=== PATIENT | male | born 1945 | race Caucasian/White ===

== ENCOUNTER 2017-08-21 15:18 | Inpatient (IN) ==
[2017-08-21] MEDS ORDERED: 0.9 % Sodium Chloride 1,000 ML IVC ONE (15:29)
[2017-08-21] MEDS ORDERED: *HR* FentaNYL (PF) 100 MCG/2 ML VIAL IVP ONE (15:29)
--- NOTE | 2017-08-21 15:36 | Emergency Department Note ---
Disposition Clinical Impression: TOMEKA (acute kidney injury), AAA (abdominal aortic aneurysm) without rupture DVT, bilateral lower limbs Qualifiers: Affected thrombotic vein of extremity: femoral Chronicity: acute Qualified Code (s): I82.413 - Acute embolism and thrombosis of femoral vein, bilateral Disposition: Admitted As Inpatient Condition: Fair Referrals: NONE,PCP [Primary Care Provider] - Forms: ED Satisfaction Letter, Work/School Release Time of Disposition: 19:20 Extremity Problem HPI - General Chief complaint: ED General Medical Stated complaint: sent by for DVT Time Seen by Provider: 08/21/17 15:27 Source: patient, EMS Limitations: no limitations Nursing Notes Reviewed: Yes Vital Signs Reviewed: Yes - History of Present Illness HPI Narrative: Patient is a 72-year-old male in by EMS from the [place] for bilateral lower extremity DVTs. Patient sent for outpatient venous Doppler but today. Patient states his leg pain left 8/10 intensity. Patient denies any pain elsewhere. He denies shortness of breath or chest pain. Patient has a history of CABG 3 years ago. Patient denies prior history of cancer Pain Scale: 1 - Related Data Home Medications Medication Instructions Recorded Confirmed Albuterol Sulfate [Ventolin Hfa] 1 puff IH BID 08/21/17 08/21/17 Aspirin [Lo-Dose Aspirin EC] 81 mg PO DAILY 08/21/17 08/21/17 Atorvastatin Calcium [Lipitor] 20 mg PO DAILY 08/21/17 08/21/17 Carvedilol 3.125 mg PO BID 08/21/17 08/21/17 Cholecalciferol (D-3) [Vitamin D] 5,000 unit PO DAILY 08/21/17 08/21/17 Cyanocobalamin (Vitamin B-12) 500 mcg PO MOWEFR 08/21/17 08/21/17 [Vitamin B12] Docusate Sodium [Dok] 100 mg PO Q12H 08/21/17 08/21/17 Fenofibrate [Tricor] 54 mg PO DAILY 08/21/17 08/21/17 Folic Acid 1 mg PO DAILY 08/21/17 08/21/17 Furosemide [Lasix] 40 mg PO DAILY 08/21/17 08/21/17 Gabapentin [Neurontin] 300 mg PO HS 08/21/17 08/21/17 GlipiZIDE XL (24 HR) [Glucotrol XL] 2.5 mg PO DAILY 08/21/17 08/21/17 Guaifenesin [Mucus Relief] 400 mg PO BID 08/21/17 08/21/17 HYDROcodone/Acet 5/325 mg [[place] 1 tab PO Q6H PRN 08/21/17 08/21/17 5-325 mg] Insulin Human Regular [HumuLIN R] 2 - 10 unit SQ DAILY 08/21/17 08/21/17 Ipratropium/Albuterol Neb [Duoneb] 3 ml IH Q4HR PRN 08/21/17 08/21/17 Ipratropium/Albuterol Neb [Duoneb] 3 ml IH Q6HR PRN 08/21/17 08/21/17 LORazepam [Ativan] 0.5 mg PO TID 08/21/17 08/21/17 Linagliptin [Tradjenta] 5 mg PO DAILY 08/21/17 08/21/17 Mirtazapine [Remeron] 30 mg PO HS 08/21/17 08/21/17 Morphine Sulfate [Morphine Oral 5 mg PO Q4H PRN 08/21/17 08/21/17 Solution] Omeprazole [PriLOSEC] 20 mg PO DAILY 08/21/17 08/21/17 Promethazine [Phenergan] 25 mg PO Q6HR PRN 08/21/17 08/21/17 Ranitidine HCl [Acid [employer]] 75 mg PO BID 08/21/17 08/21/17 Ranolazine [Ranexa] 500 mg PO BID 08/21/17 08/21/17 Sennosides [Senna] 8.6 mg PO DAILY 08/21/17 08/21/17 Sertraline [Zoloft] 100 mg PO DAILY 08/21/17 08/21/17 Spironolactone [Aldactone] 12.5 mg PO MOTH 08/21/17 08/21/17 Topiramate [Topamax] 25 mg PO QAM 08/21/17 08/21/17 Topiramate [Topamax] 50 mg PO HS 08/21/17 08/21/17 Allergies Allergy/AdvReac Type Severity Reaction Status Date / Time No Known Allergies Allergy Verified 08/21/17 15:24 All systems ED: reviewed and negative except as stated. Review of Systems: As Per HPI Constitutional: Denies: fever, chills ENT ED: Denies: congestion Cardiovascular: Denies: chest pain Respiratory: Denies: cough, dyspnea, wheezes Gastrointestinal: Denies: abdominal pain, nausea, vomiting Past Medical History - Past Medical History Source: patient, old records reviewed, nursing notes reviewed Medical history: Reports: CHF, COPD, diabetes Psychiatric history: Reports: no psych history - Social History Smoking Status: Former smoker Smokeless Tobacco Status: No Physical Exam Vital Signs Temperature 97.6 F 08/21/17 15:24 Pulse Rate 90 08/21/17 15:24 Respiratory Rate 18 08/21/17 15:24 Blood Pressure 127/75 08/21/17 15:24 O2 Sat by Pulse Oximetry 97 08/21/17 15:24 Temperature 97.6 F 08/21/17 15:24 Pulse Rate 90 08/21/17 15:24 Respiratory Rate 18 08/21/17 15:24 Blood Pressure 127/75 08/21/17 15:24 O2 Sat by Pulse Oximetry 97 08/21/17 15:24 Oxygen Delivery Oxygen Delivery Room Air CONSTITUTIONAL: Well-appearing; well-nourished; A&O X 3, in no apparent distress HEAD: Normocephalic; atraumatic EYES: PERRL, no scleral icterus NOSE: The nose is normal in appearance without rhinorrhea NECK: No JVD or distended neck veins RESP: Normal chest excursion with respiration; breath sounds clear and equal bilaterally; no wheezes, rhonchi, or rales CARD: Regular rhythm, without murmurs, rub or gallop ABD: Non-distended; non-tender, soft, without rigidity, rebound or guarding,no pulsatile mass CHEST: No pain with palpation SKIN: Normal for age and race; warm and dry without diaphoresis ; no apparent lesions EXTREMITIES: Pulses are 2 plus and equal times 4 extremities, bilateral lower extremity edema with appearance of severe venous insufficiency and scabbed over wounds with clotted blood. Both extremities scattered areas of erythema - General Limitations: no limitations General appearance: alert, in no apparent distress Course - Reevaluation(s) Reevaluation #1: Patient is back from CT. I inspected the wound in the back of the left lower extremity and lateral foot on the left as well. No active bleeding. No active purulence. Ordered x-ray further but and lower extremity to assess for any abnormality concerning for gas production in subcutaneous tissues. And consulted wound care Time: 17:59 - Consultations Consultation #1: Dr. Braga the hospitalist has accepted the Pt for admission Time: 17:37 Consultation #2: Dr. Huggins of wound care was consult it. He states he will see the patient tomorrow and take a look at his leg injuries Time: 18:00 Vital Signs Temperature 97.6 F 08/21/17 15:24 Pulse Rate 90 08/21/17 15:24 Respiratory Rate 18 08/21/17 15:24 Blood Pressure 127/75 08/21/17 15:24 O2 Sat by Pulse Oximetry 97 08/21/17 15:24 Temperature 97.6 F 08/21/17 15:24 Pulse Rate 90 08/21/17 15:24 Respiratory Rate 18 08/21/17 15:24 Blood Pressure 127/75 08/21/17 15:24 O2 Sat by Pulse Oximetry 97 08/21/17 15:24 Oxygen Delivery Oxygen Delivery Room Air Extremity Problem, [place] - MDM Narrative Medical decision making narrative: Patient was transferred to [place] emergency department after identification of bilateral lower extremity DVTs. Patient will have a CTA of the chest and CT abdomen and pelvis with IV contrast to assess for further spread of DVTs standard dose heparin orders placed. Patient's labs show an acute kidney injury with creatinine at 2.29 and a GFR of 29. Patient is unable to have contrasted studies. CTA chest and CT abdomen with IV contrast canceled and noncontrast studies have been ordered. VQ scan of the chest ordered. Imaging results: Per radiology Pulmonary Perfusion Imaging 08/21/17 17:21 IMPRESSION: Low probability for pulmonary embolus. D/ / Ray Tinajero MD / Ray Tinajero MD Interpreting Provider: Ray Tinajero MD Abdomen/Pelvis CT 08/21/17 17:31 IMPRESSION: 1. No CT evidence for acute intra-abdominal process. 2. Abdominal aortic aneurysm measuring up to 3.5 cm. Please see follow-up guidelines below. 3. Essentially nondiagnostic evaluation of the vasculature for venous thrombosis given the lack contrast enhancement. Lower extremity venous ultrasound is suggested for further evaluation, if there is persistent clinical concern. Patient is currently doing well, Patient has been started on standard dose heparin, given IV hydration, pain control with fentanyl. Patient has an incidental finding of abdominal aortic aneurysm measuring 3.5 cm. Patient may also need further evaluation concerning his IVC with his kidney function is better. Patient understands and agrees to treatment and plan for admission. Dr. Braga the hospitalist has accepted the Pt for admission - Lab Data Lab results reviewed: Yes I reviewed the patient's lab results. Lab results narrative: Short CBC 08/21/17 Range/Units 15:58 WBC 10.0 (4.3-11.1) K/mcL Hgb 10.8 L (12.9-16.9) g/dL Hct 34.0 L (37.5-50.1) % Plt Count 248 (140-400) K/mcL Neutrophils # 7.7 (1.6-8.9) K/mcL BMP 08/21/17 Range/Units 15:58 Sodium 137 (136-145) mEq/L Potassium 3.8 (3.5-5.1) mEq/L Chloride 105 (98-107) mEq/L Carbon Dioxide 25 (23-29) mEq/L BUN 28 H (8-23) mg/dL Creatinine 2.29 H (0.70-1.30) mg/dL Glucose 98 (70-105) mg/dL Calcium 9.1 (8.6-10.3) mg/dL Result diagrams: 08/21/17 15:58 08/21/17 15:58 Lab Results 08/21/17 08/21/17 08/21/17 Range/Units 15:58 15:58 15:58 WBC 10.0 (4.3-11.1) K/mcL RBC 3.68 L (4.19-5.50) M/mcL Hgb 10.8 L (12.9-16.9) g/dL Hct 34.0 L (37.5-50.1) % MCV 92.4 (83.0-100.0) fL MCH 29.3 (28.0-33.3) pg MCHC 31.8 (31.6-35.5) g/dL RDW 13.6 (11.5-14.5) % Plt Count 248 (140-400) K/mcL MPV 10.9 (9.4-12.4) fL Immature Gran % 0.8 (0-4) % Seg Neutrophils % 77.1 % Lymphocytes % 11.7 % Monocytes % 7.3 % Eosinophils % 2.8 % Basophils % 0.3 % Neutrophils # 7.7 (1.6-8.9) K/mcL Lymphocytes # 1.2 (0.6-4.6) K/mcL Monocytes # 0.7 (0.0-1.3) K/mcL Eosinophils # 0.3 (0.0-0.6) K/mcL Basophils # 0.0 (0.0-0.2) K/mcL PT 12.1 (9.4-12.1) Seconds INR 1.1 APTT 28.1 (26.0-36.0) Seconds Sodium 137 (136-145) mEq/L Potassium 3.8 (3.5-5.1) mEq/L Chloride 105 (98-107) mEq/L Carbon Dioxide 25 (23-29) mEq/L BUN 28 H (8-23) mg/dL Creatinine 2.29 H (0.70-1.30) mg/dL Est GFR ( Amer) 34 L (> 60) Est GFR (Non-Af Amer) 28 L (> 60) BUN/Creatinine Ratio 12 (6-26) Glucose 98 (70-105) mg/dL Calculated Osmolality 289 (280-300) Calcium 9.1 (8.6-10.3) mg/dL Urine Color (Yellow) Urine Clarity (Clear) Urine pH (5.0-8.0) pH Units Ur Specific [place] (1.010-1.025) Urine Protein (Neg-Trace) mg/dL Urine Glucose (UA) (Normal) mg/dL Urine Ketones (Negative) mg/dL Urine Blood (Negative) Urine Nitrite (Negative) Urine Bilirubin (Negative) Urine Urobilinogen (Normal) mg/dL Ur Leukocyte Esterase (Negative) Urine Microscopic RBC (0-3) per hpf Urine Microscopic WBC (0-3) per hpf Ur Squamous Epith Cells (None-Few) per lpf Urine Bacteria (None-Few) per hpf Hyaline Casts (None-Few) per lpf 08/21/17 Range/Units 19:39 WBC (4.3-11.1) K/mcL RBC (4.19-5.50) M/mcL Hgb (12.9-16.9) g/dL Hct (37.5-50.1) % MCV (83.0-100.0) fL MCH (28.0-33.3) pg MCHC (31.6-35.5) g/dL RDW (11.5-14.5) % Plt Count (140-400) K/mcL MPV (9.4-12.4) fL Immature Gran % (0-4) % Seg Neutrophils % % Lymphocytes % % Monocytes % % Eosinophils % % Basophils % % Neutrophils # (1.6-8.9) K/mcL Lymphocytes # (0.6-4.6) K/mcL Monocytes # (0.0-1.3) K/mcL Eosinophils # (0.0-0.6) K/mcL Basophils # (0.0-0.2) K/mcL PT (9.4-12.1) Seconds INR APTT (26.0-36.0) Seconds Sodium (136-145) mEq/L Potassium (3.5-5.1) mEq/L Chloride (98-107) mEq/L Carbon Dioxide (23-29) mEq/L BUN (8-23) mg/dL Creatinine (0.70-1.30) mg/dL Est GFR ( Amer) (> 60) Est GFR (Non-Af Amer) (> 60) BUN/Creatinine Ratio (6-26) Glucose (70-105) mg/dL Calculated Osmolality (280-300) Calcium (8.6-10.3) mg/dL Urine Color Yellow (Yellow) Urine Clarity Clear (Clear) Urine pH 6.0 (5.0-8.0) pH Units Ur Specific [place] 1.016 (1.010-1.025) Urine Protein Negative (Neg-Trace) mg/dL Urine Glucose (UA) Normal (Normal) mg/dL Urine Ketones Negative (Negative) mg/dL Urine Blood Large H (Negative) Urine Nitrite Negative (Negative) Urine Bilirubin Negative (Negative) Urine Urobilinogen Normal (Normal) mg/dL Ur Leukocyte Esterase Negative (Negative) Urine Microscopic RBC TNTC H (0-3) per hpf Urine Microscopic WBC 0-3 (0-3) per hpf Ur Squamous Epith Cells Few (None-Few) per lpf Urine Bacteria None Seen (None-Few) per hpf Hyaline Casts None Seen (None-Few) per lpf - Radiology Data Radiology results reviewed: Yes I reviewed the patient's radiology results. Pulmonary Perfusion Imaging 08/21/17 17:21 IMPRESSION: Low probability for pulmonary embolus. D/ / Ray Tinajero MD / Ray Tinajero MD Interpreting Provider: Ray Tinajero MD Abdomen/Pelvis CT 08/21/17 17:31 IMPRESSION: 1. No CT evidence for acute intra-abdominal process. 2. Abdominal aortic aneurysm measuring up to 3.5 cm. Please see follow-up guidelines below. 3. Essentially nondiagnostic evaluation of the vasculature for venous thrombosis given the lack contrast enhancement. Lower extremity venous ultrasound is suggested for further evaluation, if there is persistent clinical concern. RECOMMENDATIONS: Managing Abdominal Aortic Aneurysms 2.6-2.9 cm: Every 5 years* 3.0-3.4 cm: Every 3 years. 3.5-3.9 cm: Every 1 year. 4.0-4.4 cm: Every 1 year. Recommend vascular consultation. 4.5-5.4 cm: Every 6 months. Recommend vascular consultation. Greater than or equal to 5.5 cm: Referral to vascular surgeon. *For abdominal aortas with maximum diameter of 2.6-2.9 cm meeting criteria for AAA (>50% of proximal normal segment). Reference: J Vasc Surg. 2008;50(4 Suppl):S2-49 D/ / Calin Douglas / Calin Douglas Interpreting Provider: Calin Douglas Chest CT 08/21/17 17:31 IMPRESSION: No acute disease. Sensitivity limited without IV contrast. Status post CABG. D/ / Ray Tinajero MD / Ray Tinajero MD Interpreting Provider: Ray Tinajero MD - EKG Data EKG attestation: Yes I reviewed and interpreted this EKG. EKG results narrative: EKG taken but seen August 2017 at 1646 hrs. shows a sinus rhythm at a rate of 74 bpm with a first-degree AV block EKG shows mild ST depressions in leads V3 and V4, and lead 1. No acute ST elevations in any leads, no WPW, [place], [place]. No previous EKG for comparison
--- NOTE | 2017-08-21 15:46 | Emergency Department Note ---
Disposition Clinical Impression: TOMEKA (acute kidney injury), DVT, bilateral lower limbs Disposition: Admitted As Inpatient Condition: Fair Referrals: NONE,PCP [Primary Care Provider] - Forms: ED Satisfaction Letter, Work/School Release General Adult HPI - General Chief complaint: ED General Medical Stated complaint: sent by for DVT Time Seen by Provider: 08/21/17 15:27 Source: patient, EMS Limitations: no limitations - History of Present Illness Pain Scale: 1 - Related Data Home Medications Medication Instructions Recorded Confirmed Albuterol Sulfate [Ventolin Hfa] 1 puff IH BID 08/21/17 08/21/17 Aspirin [Lo-Dose Aspirin EC] 81 mg PO DAILY 08/21/17 08/21/17 Atorvastatin Calcium [Lipitor] 20 mg PO DAILY 08/21/17 08/21/17 Carvedilol 3.125 mg PO BID 08/21/17 08/21/17 Cholecalciferol (D-3) [Vitamin D] 5,000 unit PO DAILY 08/21/17 08/21/17 Cyanocobalamin (Vitamin B-12) 500 mcg PO MOWEFR 08/21/17 08/21/17 [Vitamin B12] Docusate Sodium [Dok] 100 mg PO Q12H 08/21/17 08/21/17 Fenofibrate [Tricor] 54 mg PO DAILY 08/21/17 08/21/17 Folic Acid 1 mg PO DAILY 08/21/17 08/21/17 Furosemide [Lasix] 40 mg PO DAILY 08/21/17 08/21/17 Gabapentin [Neurontin] 300 mg PO HS 08/21/17 08/21/17 GlipiZIDE XL (24 HR) [Glucotrol XL] 2.5 mg PO DAILY 08/21/17 08/21/17 Guaifenesin [Mucus Relief] 400 mg PO BID 08/21/17 08/21/17 HYDROcodone/Acet 5/325 mg [[place] 1 tab PO Q6H PRN 08/21/17 08/21/17 5-325 mg] Insulin Human Regular [HumuLIN R] 2 - 10 unit SQ DAILY 08/21/17 08/21/17 Ipratropium/Albuterol Neb [Duoneb] 3 ml IH Q4HR PRN 08/21/17 08/21/17 Ipratropium/Albuterol Neb [Duoneb] 3 ml IH Q6HR PRN 08/21/17 08/21/17 LORazepam [Ativan] 0.5 mg PO TID 08/21/17 08/21/17 Linagliptin [Tradjenta] 5 mg PO DAILY 08/21/17 08/21/17 Mirtazapine [Remeron] 30 mg PO HS 08/21/17 08/21/17 Morphine Sulfate [Morphine Oral 5 mg PO Q4H PRN 08/21/17 08/21/17 Solution] Omeprazole [PriLOSEC] 20 mg PO DAILY 08/21/17 08/21/17 Promethazine [Phenergan] 25 mg PO Q6HR PRN 08/21/17 08/21/17 Ranitidine HCl [Acid [employer]] 75 mg PO BID 08/21/17 08/21/17 Ranolazine [Ranexa] 500 mg PO BID 08/21/17 08/21/17 Sennosides [Senna] 8.6 mg PO DAILY 08/21/17 08/21/17 Sertraline [Zoloft] 100 mg PO DAILY 08/21/17 08/21/17 Spironolactone [Aldactone] 12.5 mg PO MOTH 08/21/17 08/21/17 Topiramate [Topamax] 25 mg PO QAM 08/21/17 08/21/17 Topiramate [Topamax] 50 mg PO HS 08/21/17 08/21/17 Allergies Allergy/AdvReac Type Severity Reaction Status Date / Time No Known Allergies Allergy Verified 08/21/17 15:24 Constitutional: Denies: fever, chills ENT ED: Denies: congestion Cardiovascular: Denies: chest pain Respiratory: Denies: cough, dyspnea, wheezes Gastrointestinal: Denies: abdominal pain, nausea, vomiting Past Medical History - Past Medical History Medical history: Reports: CHF, COPD, diabetes Psychiatric history: Reports: no psych history - Social History Smoking Status: Former smoker Smokeless Tobacco Status: No Physical Exam - General Limitations: no limitations General appearance: alert, in no apparent distress Course Vital Signs Temperature 97.6 F 08/21/17 15:24 Pulse Rate 90 08/21/17 15:24 Respiratory Rate 18 08/21/17 15:24 Blood Pressure 127/75 08/21/17 15:24 O2 Sat by Pulse Oximetry 97 08/21/17 15:24 Temperature 97.6 F 08/21/17 15:24 Pulse Rate 90 08/21/17 15:24 Respiratory Rate 18 08/21/17 15:24 Blood Pressure 127/75 08/21/17 15:24 O2 Sat by Pulse Oximetry 97 08/21/17 15:24 Oxygen Delivery Oxygen Delivery Room Air Medical Decision Making - Lab Data Result diagrams: 08/21/17 15:58 08/21/17 15:58 Lab Results 08/21/17 08/21/17 08/21/17 Range/Units 15:58 15:58 15:58 WBC 10.0 (4.3-11.1) K/mcL RBC 3.68 L (4.19-5.50) M/mcL Hgb 10.8 L (12.9-16.9) g/dL Hct 34.0 L (37.5-50.1) % MCV 92.4 (83.0-100.0) fL MCH 29.3 (28.0-33.3) pg MCHC 31.8 (31.6-35.5) g/dL RDW 13.6 (11.5-14.5) % Plt Count 248 (140-400) K/mcL MPV 10.9 (9.4-12.4) fL Immature Gran % 0.8 (0-4) % Seg Neutrophils % 77.1 % Lymphocytes % 11.7 % Monocytes % 7.3 % Eosinophils % 2.8 % Basophils % 0.3 % Neutrophils # 7.7 (1.6-8.9) K/mcL Lymphocytes # 1.2 (0.6-4.6) K/mcL Monocytes # 0.7 (0.0-1.3) K/mcL Eosinophils # 0.3 (0.0-0.6) K/mcL Basophils # 0.0 (0.0-0.2) K/mcL PT 12.1 (9.4-12.1) Seconds INR 1.1 APTT 28.1 (26.0-36.0) Seconds Sodium 137 (136-145) mEq/L Potassium 3.8 (3.5-5.1) mEq/L Chloride 105 (98-107) mEq/L Carbon Dioxide 25 (23-29) mEq/L BUN 28 H (8-23) mg/dL Creatinine 2.29 H (0.70-1.30) mg/dL Est GFR ( Amer) 34 L (> 60) Est GFR (Non-Af Amer) 28 L (> 60) BUN/Creatinine Ratio 12 (6-26) Glucose 98 (70-105) mg/dL Calculated Osmolality 289 (280-300) Calcium 9.1 (8.6-10.3) mg/dL Critical Care Time Critical Care Time: Yes Total Critical Care Time: 40 Attestation: Critical care performed: Time is exclusive of separately billable procedures. Time includes: direct patient care, patient reassessment, coordination of patient care, interpretation of data (laboratory data, radiology data, and respiratory data), review of patient's medical records, medical consultation and documentation of patient care. Procedures included in critical care time: Procedures excluded from critical care time: Attestation Statement - Attestation Attestation: I examined this patient and my medical decision-making was reviewed with the Resident Physician. I agree with the documented findings, disposition and treatment plan as described except to the extent set forth below. Patient presents to the ED with a chief complaint of DVTs. The patient is unsure why he had outpatient DVT studies ordered. He has bilateral thrombus diffusely in his lower extremities. On examination he has pitting edema. Plan. Labs. CTA chest abdomen pelvis. The patient's CT chest is unremarkable. V/Q and CT abdomen pending. Accepted for admission by Dr. Braga. V/Q low probability for PE.
[2017-08-21] MEDS ORDERED: Isovue-370 500 ML INFUS..BTL IV ONE (15:47)
[2017-08-21] MEDS ORDERED: *HR* Heparin 5,000 UNIT/ML VIAL IVP PRN ×2 (16:00)
[2017-08-21] MEDS ORDERED: *HR* Heparin 5,000 UNIT/ML VIAL IVP ONE (16:00)
[2017-08-21 16:09] LABS: Basophils % 0.3 %; Eosinophils # 0.3 K/mcL (0.0-0.6); Eosinophils % 2.8 %; Hemoglobin 10.8 g/dL (12.9-16.9); Immature Granulocytes % 0.8 % (0-4); Lymphocytes # 1.2 K/mcL (0.6-4.6); Lymphocytes % 11.7 %; Mean Corpuscular HGB Conc 31.8 g/dL (31.6-35.5); Mean Corpuscular Hemoglobin 29.3 pg (28.0-33.3); Mean Corpuscular Volume 92.4 fL (83.0-100.0); Mean Platelet Volume 10.9 fL (9.4-12.4); Monocytes # 0.7 K/mcL (0.0-1.3); Monocytes % 7.3 %; Neutrophils # 7.7 K/mcL (1.6-8.9); Platelet Count 248 K/mcL (140-400); Red Blood Count 3.68 M/mcL (4.19-5.50); Red Cell Distribution Width 13.6 % (11.5-14.5); Segmented Neutrophils % 77.1 %
[2017-08-21 16:15] LABS: INR 1.1; Prothrombin Time 12.1 Seconds (9.4-12.1)
[2017-08-21 16:18] LABS: Activated Partial Thrombo Time 28.1 Seconds (26.0-36.0)
[2017-08-21 16:29] LABS: Calcium 9.1 mg/dL (8.6-10.3); Potassium 3.8 mEq/L (3.5-5.1)
[2017-08-21] MEDS: Heparin 25,000 UNIT/500 ML D5W 25,000 UNIT/500 ML BAG IVC SCH (17:19)
[2017-08-21 19:50] LABS: Bilirubin,Urine Negative (Negative); Blood,Urine Large (Negative); Clarity,Urine Clear (Clear); Color,Urine Yellow (Yellow); Glucose,Urine (UA) Normal (Normal); Ketones,Urine Negative (Negative); Leukocyte Esterase,Urine Negative (Negative); Nitrite,Urine Negative (Negative); Protein,Urine Negative (Neg-Trace); Specific Gravity,Urine 1.016 (1.010-1.025); Urobilinogen,Urine Normal (Normal)
[2017-08-21 19:54] LABS: Bacteria,Urine None Seen per hpf (None-Few); Hyaline Casts,Urine None Seen per lpf (None-Few); RBC,Urine TNTC per hpf (0-3); Squamous Epithelial Cell,Urine Few per lpf (None-Few); WBC,Urine 0-3 per hpf (0-3)
[2017-08-21] MEDS ORDERED: Naloxone 0.4 MG/ML INJ IVP PRN (21:41)
[2017-08-21] MEDS ORDERED: Acetaminophen 325 MG TABLET PO PRN (21:41)
[2017-08-21] MEDS ORDERED: Dextrose Gel 15 GM/37.5 ML TUBE PO PRN ×2 (21:45)
[2017-08-21] MEDS ORDERED: *HR* Dextrose 50 % in Water (Syg) 50 ML SYRINGE IVP PRN (21:45)
[2017-08-21] MEDS ORDERED: *HR* Warfarin 5 MG TABLET PO ONE (21:45)
[2017-08-21] MEDS ORDERED: D5% in Water 1,000 ML IVC PRN (21:45)
[2017-08-21] MEDS ORDERED: Ipratropium/Albuterol Neb 3 ML IH PRN (21:47)
[2017-08-21] MEDS ORDERED: *HR* Morphine Soln 10 MG/5 ML UDC PO PRN (21:47)
[2017-08-21] MEDS ORDERED: Cyanocobalamin (B-12) 1,000 MCG TABLET PO SCH (22:00)
[2017-08-21] MEDS: *HR* HYDROcodone/Acet 5/325 mg TABLET PO PRN (23:46)
--- NOTE | 2017-08-22 03:27 | Internal Med History&Physical ---
Date of Encounter: 08/21/17 Time of Encounter: 20:00 Internal Medicine - H&P: HPI Chief complaint: Bilateral leg pain and swelling Admitted From: Intrahospital Transfer Plans for Post Hospital Care: Home History of present illness: Mr. Dumont is a 72 year old male transferred from [facility] for bilateral leg swelling and pain. Past medical history is significant for diabetes, hypertension, COPD, CAD S/P CABG. Patient said he has bilateral leg pain for a while, sharp, left-sided more than right side. Patient denies fever, shortness of breath, or chest pain. Patient denies a recent travel. Patient had left hip surgery one month ago, and feels more painful on bilateral legs after surgery. In the [facility], [place] doppler shows bilateral DVT. Patient denies history of DVT. Patient was transferred to our hospital for further management. Past Med Surg Social Fam HX - Past Medical History Medical history: CHF, COPD, diabetes Psychiatric history: no psych history - Past Surgical History Surgical History: hip replacement - Social History Smoking Status: Current every day smoker Smokeless Tobacco Status: No Alcohol use: none Drug use: none - Family History Father Hx Family Cardiac Disorders: Yes ([place]) Internal Medicine - H&P: Meds Albuterol Sulfate [Ventolin Hfa] 1 puff IH BID 08/21/17 [History] Aspirin [Lo-Dose Aspirin EC] 81 mg PO DAILY 08/21/17 [History] Atorvastatin Calcium [Lipitor] 20 mg PO DAILY 08/21/17 [History] Carvedilol 3.125 mg PO BID 08/21/17 [History] Cholecalciferol (D-3) [Vitamin D] 5,000 unit PO DAILY 08/21/17 [History] Cyanocobalamin (Vitamin B-12) [Vitamin B12] 500 mcg PO MOWEFR 08/21/17 [History] Docusate Sodium [Dok] 100 mg PO Q12H 08/21/17 [History] Fenofibrate [Tricor] 54 mg PO DAILY 08/21/17 [History] Folic Acid 1 mg PO DAILY 08/21/17 [History] Furosemide [Lasix] 40 mg PO DAILY 08/21/17 [History] Gabapentin [Neurontin] 300 mg PO HS 08/21/17 [History] GlipiZIDE XL (24 HR) [Glucotrol XL] 2.5 mg PO DAILY 08/21/17 [History] Guaifenesin [Mucus Relief] 400 mg PO BID 08/21/17 [History] HYDROcodone/Acet 5/325 mg [[place] 5-325 mg] 1 tab PO Q6H PRN 08/21/17 [History] Insulin Human Regular [HumuLIN R] 2 - 10 unit SQ DAILY 08/21/17 [History] Ipratropium/Albuterol Neb [Duoneb] 3 ml IH Q4HR PRN 08/21/17 [History] Ipratropium/Albuterol Neb [Duoneb] 3 ml IH Q6HR PRN 08/21/17 [History] LORazepam [Ativan] 0.5 mg PO TID 08/21/17 [History] Linagliptin [Tradjenta] 5 mg PO DAILY 08/21/17 [History] Mirtazapine [Remeron] 30 mg PO HS 08/21/17 [History] Morphine Sulfate [Morphine Oral Solution] 5 mg PO Q4H PRN 08/21/17 [History] Omeprazole [PriLOSEC] 20 mg PO DAILY 08/21/17 [History] Promethazine [Phenergan] 25 mg PO Q6HR PRN 08/21/17 [History] Ranitidine HCl [Acid Log Yard Manager] 75 mg PO BID 08/21/17 [History] Ranolazine [Ranexa] 500 mg PO BID 08/21/17 [History] Sennosides [Senna] 8.6 mg PO DAILY 08/21/17 [History] Sertraline [Zoloft] 100 mg PO DAILY 08/21/17 [History] Spironolactone [Aldactone] 12.5 mg PO MOTH 08/21/17 [History] Topiramate [Topamax] 25 mg PO QAM 08/21/17 [History] Topiramate [Topamax] 50 mg PO HS 08/21/17 [History] 3 Allergy/AdvReac Type Severity Reaction Status Date / Time No Known Allergies Allergy Verified 08/21/17 15:24 All Systems PM: A 10-system review of systems was performed and is negative for pertinent findings except as documented above in the HPI. - Constitutional Vitals: Temp Pulse Resp BP Pulse Ox 98.3 F 65 14 119/69 96 08/22/17 02:44 04/14/18 02:44 08/22/17 02:44 08/22/17 02:44 08/22/17 02:44 General appearance: Present: A&O X 3, no acute distress, answers questions appropriately - Head Head exam: Present: atraumatic, normocephalic - Eye Eye exam: Present: PERRL, conjuntiva pink, sclera anicteric Pupils: Present: PERRL - Neck Neck exam general surgery: Present: supple, trachea midline. Absent: lymphadenopathy - Respiratory Respiratory exam: Present: CTAB. Absent: accessory muscle use, rales, rhonchi, wheezes - Cardiovascular Cardiovascular exam: Present: RRR, +S1, +S2. Absent: diastolic murmur, gallop, rubs, systolic murmur - GI/Abdominal GI/Abdominal exam: Present: normal bowel sounds, soft, no peritoneal signs. Absent: distended, tenderness - Extremities Exam Extremities exam: Present: calf tenderness (Bilaterally), pedal edema ( Bilaterally), warm, radial pulses palpable and symmetrical. Absent: cyanotic - Neurological Exam Neurological exam: Present: CN II-XII intact, oriented X3, no focal deficits. Absent: pronater drift, facial droop, speech deficit - Skin Skin exam: Present: dry, intact Internal Med - H&P Results - Labs CBC & Chem 7: 08/21/17 15:58 08/21/17 15:58 - Assessment and plan (1) TOMEKA (acute kidney injury) Current Visit: Yes Status: Acute Assessment and plan: Patient has elevated creatinine. No baseline available to compare. CT abdomen shows no hydronephrosis. Will continue closely follow renal function and avoid nephrotoxic medications (2) DVT, bilateral lower limbs Current Visit: Yes Status: Acute Assessment and plan: Patient was found bilateral DVT. VQ scan has been done which shows low probability of PE. Patient denies shortness of breath or chest pain. - Heparin drip started - We will start Coumadin as well as patient needed long-term anticoagulation - Closely monitor patient Qualifiers: Affected thrombotic vein of extremity: femoral Chronicity: acute Qualified Code(s): I82.413 - Acute embolism and thrombosis of femoral vein, bilateral (3) AAA (abdominal aortic aneurysm) without rupture Current Visit: Yes Status: Acute Assessment and plan: Incidentally found by abdominal CT. 3.5 cm in size. Follow-up as outpatient per protocol. - Time Spent With Patient Total time spent is greater than 50% in coordination of care (as documented) at patient's floor/unit and/or counseling patient: 40 min Greater than 35 minutes
[2017-08-22 07:09] LABS: Basophils % 0.5 %; Eosinophils # 0.4 K/mcL (0.0-0.6); Eosinophils % 5.2 %; Hematocrit 29.6 % (37.5-50.1); Immature Granulocytes % 0.5 % (0-4); Lymphocytes # 1.6 K/mcL (0.6-4.6); Lymphocytes % 22.3 %; Mean Corpuscular HGB Conc 31.1 g/dL (31.6-35.5); Mean Corpuscular Volume 93.4 fL (83.0-100.0); Mean Platelet Volume 11.1 fL (9.4-12.4); Monocytes # 0.7 K/mcL (0.0-1.3); Neutrophils # 4.6 K/mcL (1.6-8.9); Platelet Count 219 K/mcL (140-400); Red Blood Count 3.17 M/mcL (4.19-5.50); Red Cell Distribution Width 13.6 % (11.5-14.5); Segmented Neutrophils % 62.5 %
[2017-08-22 07:11] LABS: Hemoglobin 9.2 g/dL (12.9-16.9)
[2017-08-22 07:30] LABS: Calcium 8.6 mg/dL (8.6-10.3); Potassium 3.9 mEq/L (3.5-5.1)
[2017-08-22 07:57] LABS: INR 1.1; Prothrombin Time 12.2 Seconds (9.4-12.1)
[2017-08-22] MEDS: Heparin 25,000 UNIT/500 ML D5W 25,000 UNIT/500 ML BAG IVC SCH ×2 (08:07→18:02)
[2017-08-22] MEDS: Insulin LISPRO 300 UNITS/3 ML VIAL SQ SCH ×4 (08:38→20:53)
[2017-08-22] MEDS: Ranolazine 500 MG TAB.ER.12H PO SCH ×2 (08:44→20:25)
[2017-08-22] MEDS: Folic Acid 1 MG TABLET PO SCH (08:44)
[2017-08-22] MEDS: Furosemide 40 MG TABLET PO SCH (08:45)
[2017-08-22] MEDS: Famotidine 20 MG TABLET PO SCH (08:45)
[2017-08-22] MEDS: Topiramate 25 MG TABLET PO SCH ×2 (08:45→20:26)
[2017-08-22] MEDS: Fenofibrate 54 MG TABLET PO SCH (08:45)
[2017-08-22] MEDS: *HR* LORazepam 0.5 MG TABLET PO SCH ×3 (08:46→20:25)
[2017-08-22] MEDS: Aspirin Enteric Coated 81 MG Tablet PO SCH (08:46)
[2017-08-22] MEDS: Sennosides 8.6 MG TABLET PO SCH (08:46)
[2017-08-22] MEDS: Cholecalciferol (D-3) 1,000 UNIT TABLET PO SCH (08:47)
[2017-08-22] MEDS: GuaiFENesin Liq 200 MG/10 ML UDC PO SCH ×2 (08:47→20:25)
[2017-08-22] MEDS: Nicotine 14 MG PATCH.TD24 TD SCH (08:47)
--- NOTE | 2017-08-22 13:09 | Podiatry Consult Note ---
Date of Encounter: 08/22/17 Time of Encounter: 12:35 Assessment and Plan (1) Venous (peripheral) insufficiency Current visit: Yes Status: Acute (2) Chronic diabetic ulcer of left foot determined by examination Current visit: Yes Status: Acute Ulcerations do not appear to be infected. left heel NPUAP stage 3 ulceration, sparrow grade 2 left lateral foot ulceration. venous leg ulceration. Ulceration sites appear stable. Recommend upon discharge that he use calcium alginate on the wounds. If in fact he is not following up with anyone would recommend that he sees me in the wound care center. Medical management of the DVTs per primary team. A well in the future if feels these ulcerations require compressive stockings or juxta light compression stockings to reduce edema of the legs and to try to prevent future ulceration. Dressing changes while admitted daily with maxillary. Heel protector boot needed. Thank you for this consult. History of Present Illness HPI: Mr. Dumont is a 72 year old male transferred from [facility] for DVTs in his legs. Past medical history is significant for diabetes, hypertension, COPD, CAD S/P CABG which was obtained from chart. Patient is alert and is a terrible historian and he says he has no idea why he is in this hospital or where he is. He does say that he lives in a facility and there are girls their the care for his wounds. He thinks they have been there for a year or more. He is unable to tell me anything pertinent to his wounds or of value about his wounds or any of his medical conditions. ER consulted podiatry for hospitalist for evaluation of his wounds. Past Med Surg Social Fam HX - Past Medical History Medical history: CHF, COPD, diabetes Psychiatric history: no psych history - Past Surgical History Surgical History: hip replacement - Social History Smoking Status: Current every day smoker Smokeless Tobacco Status: No Alcohol use: none Drug use: none - Family History Father Hx Family Cardiac Disorders: Yes ([place]) Medications and Allergies Albuterol Sulfate [Ventolin Hfa] 1 puff IH BID 08/21/17 [History] Aspirin [Lo-Dose Aspirin EC] 81 mg PO DAILY 08/21/17 [History] Atorvastatin Calcium [Lipitor] 20 mg PO DAILY 08/21/17 [History] Carvedilol 3.125 mg PO BID 08/21/17 [History] Cholecalciferol (D-3) [Vitamin D] 5,000 unit PO DAILY 08/21/17 [History] Cyanocobalamin (Vitamin B-12) [Vitamin B12] 500 mcg PO MOWEFR 08/21/17 [History] Docusate Sodium [Dok] 100 mg PO Q12H 08/21/17 [History] Fenofibrate [Tricor] 54 mg PO DAILY 08/21/17 [History] Folic Acid 1 mg PO DAILY 08/21/17 [History] Furosemide [Lasix] 40 mg PO DAILY 08/21/17 [History] Gabapentin [Neurontin] 300 mg PO HS 08/21/17 [History] GlipiZIDE XL (24 HR) [Glucotrol XL] 2.5 mg PO DAILY 08/21/17 [History] Guaifenesin [Mucus Relief] 400 mg PO BID 08/21/17 [History] HYDROcodone/Acet 5/325 mg [[place] 5-325 mg] 1 tab PO Q6H PRN 08/21/17 [History] Insulin Human Regular [HumuLIN R] 2 - 10 unit SQ DAILY 08/21/17 [History] Ipratropium/Albuterol Neb [Duoneb] 3 ml IH Q4HR PRN 08/21/17 [History] Ipratropium/Albuterol Neb [Duoneb] 3 ml IH Q6HR PRN 08/21/17 [History] LORazepam [Ativan] 0.5 mg PO TID 08/21/17 [History] Linagliptin [Tradjenta] 5 mg PO DAILY 08/21/17 [History] Mirtazapine [Remeron] 30 mg PO HS 08/21/17 [History] Morphine Sulfate [Morphine Oral Solution] 5 mg PO Q4H PRN 08/21/17 [History] Omeprazole [PriLOSEC] 20 mg PO DAILY 08/21/17 [History] Promethazine [Phenergan] 25 mg PO Q6HR PRN 08/21/17 [History] Ranitidine HCl [Acid Channel Installer] 75 mg PO BID 08/21/17 [History] Ranolazine [Ranexa] 500 mg PO BID 08/21/17 [History] Sennosides [Senna] 8.6 mg PO DAILY 08/21/17 [History] Sertraline [Zoloft] 100 mg PO DAILY 08/21/17 [History] Spironolactone [Aldactone] 12.5 mg PO MOTH 08/21/17 [History] Topiramate [Topamax] 25 mg PO QAM 08/21/17 [History] Topiramate [Topamax] 50 mg PO HS 08/21/17 [History] 3 Allergy/AdvReac Type Severity Reaction Status Date / Time No Known Allergies Allergy Verified 08/21/17 15:24 All Systems Reviewed: The remainder of the systems were reviewed and are negative - Constitutional Constitutional: other (unable to obtain a ROS secondary to patient capacity to answer questions and participate ) - Cardiovascular Cardiovascular: leg ulcers, other (unable to obtain a ROS secondary to patient capacity to answer questions and participate ) - Respiratory Respiratory: other (unable to obtain a ROS secondary to patient capacity to answer questions and participate ) - Musculoskeletal Musculoskeletal: other (unable to obtain a ROS secondary to patient capacity to answer questions and participate ) Physical Exam - Constitutional Vitals: Temp Pulse Resp BP Pulse Ox 99.2 F 81 15 143/80 97 08/22/17 10:37 08/22/17 10:37 08/22/17 10:37 08/22/17 10:37 08/22/17 10:37 Exam: Well-developed and nourished male in no acute distress, alert and not oriented Vascular: Bilateral feet and legs are warm to touch. Mild edema bilateral. Dermatology: Venous insufficiency bilateral legs with induration and discoloration. Ulceration left lateral foot proximally 1 cm x 1.5 cm x 0.3 cm ulceration posterior heel 2 cm x 2 cm x 0.3 cm. Venous ulcerations of the left lower extremity on the posterior aspect of the legs. no erythema surrounding ulcerations, no purulence or fluctuance. None of the ulcerations probe to bone. The posterior heel ulceration does not communicate with tendon or deeper structures. There is no necrosis or eschar. Musculoskeletal: Pain appears to be elicited with palpation of the legs. Neurology: Diminished protective sensation appears to be present however patient is unwilling/unable to participate in exam X-ray: Osteopenia. No evidence of cortical disruption or osteomyelitis. Results - Labs Result Diagrams: 08/22/17 06:09 08/22/17 06:09 Labs: Abnormal lab results RBC 3.17 M/mcL (4.19-5.50) L 08/22/17 06:09 Hgb 9.2 g/dL (12.9-16.9) L D 08/22/17 06:09 Hct 29.6 % (37.5-50.1) L 08/22/17 06:09 MCHC 31.1 g/dL (31.6-35.5) L 08/22/17 06:09 PT 12.2 Seconds (9.4-12.1) H 08/22/17 06:09 APTT 76.0 Seconds (26.0-36.0) H 08/22/17 06:09 Chloride 108 mEq/L (98-107) H 08/22/17 06:09 BUN 26 mg/dL (8-23) H 08/22/17 06:09 Creatinine 2.10 mg/dL (0.70-1.30) H 08/22/17 06:09 Est GFR ( Amer) 38 (> 60) L 08/22/17 06:09 Est GFR (Non-Af Amer) 31 (> 60) L 08/22/17 06:09 Glucose 138 mg/dL (70-105) H 08/22/17 06:09 Urine Blood Large (Negative) H 08/21/17 19:39 Urine Microscopic RBC TNTC per hpf (0-3) H 08/21/17 19:39 H & H 08/22/17 Range/Units 06:09 Hgb 9.2 L D (12.9-16.9) g/dL Hct 29.6 L (37.5-50.1) % All other labs normal. Consult Discharge Plan - Plan Referrals: NONE,PCP [Primary Care Provider] -
--- NOTE | 2017-08-22 16:02 | Internal Med Progress Note ---
Date of Encounter: 08/22/17 Time of Encounter: 12:40 - Assessment and plan (1) TOMEKA (acute kidney injury) Current Visit: Yes Status: Acute Assessment and plan: Sr Cr 2.10 GFR 31. No prior labs to compare. CT abdomen/pelvis: the kidneys are symmetric in size and noncontrast appearance. No suspicious renal lesions, no renal, ureteral, or intravesicular calculi. No obstructive uropathy. Avoid nephrotoxins Monitor labs. (2) DVT, bilateral lower limbs Current Visit: Yes Status: Acute Assessment and plan: Pt reports BLE pain for about 2-3 weeks. He states that it was sharp and Left > right. He is non-ambulatory for approximately 5 years. Pt states that he is unable to talk about why he is in a wheelchair all of the time. Patient was found to have bilateral DVT. VQ scan showed low probability for PE. Patient denies shortness of breath or chest pain. Continue heparin drip Warfarin has been started, pharmacy to dose. Closely monitor patient for signs of bleeding. Urine and stool occult blood were ordered this morning, remain uncollected. Qualifiers: Affected thrombotic vein of extremity: femoral Chronicity: acute Qualified Code(s): I82.413 - Acute embolism and thrombosis of femoral vein, bilateral (3) AAA (abdominal aortic aneurysm) without rupture Current Visit: Yes Status: Acute Assessment and plan: Incidental finding on abdominal CT. 3.5 cm. Follow-up outpatient. - Time Spent With Patient Total time spent is greater than 50% in coordination of care (as documented) at patient's floor/unit and/or counseling patient: less than 15 minutes - Subjective Interval history: Pt was seen and assessed at [facility] at 1240. Pt is alert and awake, does not answer questions appropriately. States that he does not know where he is, the month, or the year, but is aware that Giovana is president. He states that he lives in [facility] but does not know where it is. He is unable to state how long how he has been non-ambulatory. He denies n/v/d, abdominal pain, sob, headache, dizziness or chest pain. - Constitutional Vitals: Temp Pulse Resp BP Pulse Ox 99.3 F 68 15 106/67 97 08/22/17 14:44 08/22/17 14:44 08/22/17 14:44 08/22/17 14:44 08/22/17 14:44 General appearance: Present: cooperative, A&O X 1, pleasant, no acute distress, answers questions appropriately - Head Head exam: Present: atraumatic, normal inspection, normocephalic - Eye Eye exam: Present: conjuntiva pink, sclera anicteric - Neck Neck exam general surgery: Present: supple, trachea midline. Absent: lymphadenopathy, tenderness - Respiratory Respiratory exam: Present: CTAB. Absent: accessory muscle use, chest wall tenderness, rales, respiratory distress, rhonchi, wheezes - Cardiovascular Cardiovascular exam: Present: RRR, +S1, +S2. Absent: diastolic murmur, gallop, rubs, systolic murmur - GI/Abdominal GI/Abdominal exam: Present: normal bowel sounds, soft. Absent: distended, hepatomegaly, tenderness - Extremities Exam Extremities exam: Present: normal capillary refill, normal inspection, tenderness, warm, radial pulses palpable and symmetrical. Absent: calf tenderness, cyanotic, pedal edema - Neurological Exam Neurological exam: Present: alert, altered, no focal deficits. Absent: oriented X3, facial droop, speech deficit - Skin Skin exam: Present: dry, intact, normal color, warm. Absent: rash Internal Medicine: Result - Labs CBC & Chem 7: 08/22/17 06:09 08/22/17 06:09 Labs: Short CBC 08/22/17 Range/Units 06:09 WBC 7.3 (4.3-11.1) K/mcL Hgb 9.2 L D (12.9-16.9) g/dL Hct 29.6 L (37.5-50.1) % Plt Count 219 (140-400) K/mcL Neutrophils # 4.6 (1.6-8.9) K/mcL BMP 08/22/17 06:09 Sodium 138 Potassium 3.9 Chloride 108 H Carbon Dioxide 24 BUN 26 H Creatinine 2.10 H Glucose 138 H Calcium 8.6 - ABG Interpretation ABG results: PT/INR, D-dimer PT 12.2 Seconds (9.4-12.1) H 08/22/17 06:09 Consult Discharge Plan - Plan Referrals: NONE,PCP [Primary Care Provider] -
[2017-08-22 16:31] LABS: Hematocrit 29.8 % (37.5-50.1); Hemoglobin 9.7 g/dL (12.9-16.9)
[2017-08-22 17:15] LABS: Bilirubin,Urine Negative (Negative); Blood,Urine Negative (Negative); Clarity,Urine Clear (Clear); Color,Urine Yellow (Yellow); Glucose,Urine (UA) Normal (Normal); Ketones,Urine Negative (Negative); Leukocyte Esterase,Urine Negative (Negative); Nitrite,Urine Negative (Negative); Protein,Urine Negative (Neg-Trace); Specific Gravity,Urine 1.014 (1.010-1.025); Urobilinogen,Urine Normal (Normal)
[2017-08-22] MEDS ORDERED: Warfarin perPT PO PRN ×2 (17:21→18:00)
[2017-08-22] MEDS ORDERED: *HR* Heparin 5,000 UNIT/ML VIAL IVP PRN ×2 (17:27)
[2017-08-22] MEDS ORDERED: *HR* Warfarin 5 MG TABLET PO ONE (18:00)
[2017-08-22] MEDS: Gabapentin 300 MG CAPSULE PO SCH (20:25)
[2017-08-22] MEDS: Mirtazapine 15 MG TABLET PO SCH (20:26)
[2017-08-22] MEDS: *HR* HYDROcodone/Acet 5/325 mg TABLET PO PRN (20:31)
--- NOTE | 2017-08-22 22:41 | Event Note ---
Date of Encounter: 08/22/17 Time of Encounter: 22:01 Alerted by pts. nurse that fecal hemoccult positive. Pt. has hematuria earlier in the day which had resolved. Pt. admitted for bilateral DVTs in LEs and is currently on heparin drip. Went to assess pt. who denies any abdominal pain or unusual bleeding. I instructed pt. to monitor stool for blood as well as urine for hematuria. Instructed pts. nurse to order H/H Q4HR, monitor I&O, and monitor patient for symptoms of increased weakness or bleeding. Pt. and f/u labs to be monitored closely.
[2017-08-23 01:00] LABS: Hemoglobin 9.7 g/dL (12.9-16.9)
[2017-08-23 06:14] LABS: Hematocrit 30.5 % (37.5-50.1); Hemoglobin 9.6 g/dL (12.9-16.9)
[2017-08-23 06:20] LABS: INR 1.2; Prothrombin Time 13.1 Seconds (9.4-12.1)
[2017-08-23] MEDS: Sennosides 8.6 MG TABLET PO SCH (08:27)
[2017-08-23] MEDS: Aspirin Enteric Coated 81 MG Tablet PO SCH (08:27)
[2017-08-23] MEDS: Folic Acid 1 MG TABLET PO SCH (08:27)
[2017-08-23] MEDS: Famotidine 20 MG TABLET PO SCH (08:28)
[2017-08-23] MEDS: Furosemide 40 MG TABLET PO SCH (08:28)
[2017-08-23] MEDS: Nicotine 14 MG PATCH.TD24 TD SCH (08:28)
[2017-08-23] MEDS: Ranolazine 500 MG TAB.ER.12H PO SCH ×2 (08:28→20:37)
[2017-08-23] MEDS: Cholecalciferol (D-3) 1,000 UNIT TABLET PO SCH (08:28)
[2017-08-23] MEDS: *HR* LORazepam 0.5 MG TABLET PO SCH ×3 (08:28→20:37)
[2017-08-23] MEDS: GuaiFENesin Liq 200 MG/10 ML UDC PO SCH ×2 (08:28→20:37)
[2017-08-23] MEDS: Fenofibrate 54 MG TABLET PO SCH (08:28)
[2017-08-23] MEDS: Topiramate 25 MG TABLET PO SCH ×2 (08:28→20:37)
[2017-08-23] MEDS: Insulin LISPRO 300 UNITS/3 ML VIAL SQ SCH ×4 (08:29→20:40)
[2017-08-23 09:26] LABS: Basophils % 0.3 %; Eosinophils # 0.3 K/mcL (0.0-0.6); Eosinophils % 4.6 %; Hematocrit 31.9 % (37.5-50.1); Hemoglobin 10.4 g/dL (12.9-16.9); Immature Granulocytes % 0.4 % (0-4); Lymphocytes # 1.1 K/mcL (0.6-4.6); Lymphocytes % 16.9 %; Mean Corpuscular HGB Conc 32.6 g/dL (31.6-35.5); Mean Corpuscular Hemoglobin 30.3 pg (28.0-33.3); Mean Platelet Volume 11.1 fL (9.4-12.4); Monocytes # 0.5 K/mcL (0.0-1.3); Monocytes % 7.1 %; Neutrophils # 4.8 K/mcL (1.6-8.9); Platelet Count 197 K/mcL (140-400); Red Blood Count 3.43 M/mcL (4.19-5.50); Red Cell Distribution Width 13.8 % (11.5-14.5); Segmented Neutrophils % 70.7 %
[2017-08-23 09:39] LABS: Calcium 8.7 mg/dL (8.6-10.3)
--- NOTE | 2017-08-23 11:00 | Internal Med Progress Note ---
Date of Encounter: 08/23/17 Time of Encounter: 09:25 - Assessment and plan (1) TOMEKA (acute kidney injury) Current Visit: Yes Status: Acute Assessment and plan: Sr Cr 1.97 GFR 34. Improving. Avoid nephrotoxins Monitor labs. Gentle IV fluid hydration with 0.9 normal saline at 60 miles per hour (2) DVT, bilateral lower limbs Current Visit: Yes Status: Acute Assessment and plan: Patient denies leg pain, reports bilateral feet are "sore". Continue heparin drip Warfarin has been started, pharmacy to dose. INR 1.2. Closely monitor patient for signs of bleeding. Repeat urine and repeat stool occult blood negative. Qualifiers: Affected thrombotic vein of extremity: femoral Chronicity: acute Qualified Code(s): I82.413 - Acute embolism and thrombosis of femoral vein, bilateral (3) AAA (abdominal aortic aneurysm) without rupture Current Visit: Yes Status: Acute Assessment and plan: Incidental finding on abdominal CT. 3.5 cm. Follow-up with vascular outpatient. - Time Spent With Patient Total time spent is greater than 50% in coordination of care (as documented) at patient's floor/unit and/or counseling patient: less than 15 minutes - Subjective Interval history: Pt was seen and assessed at beside at 0925. Pt is alert and awake, pleasant. I did bedside guaiac myself, it was negative for blood. A second stool was collected this morning, patient is incontinent of loose stool. It also is negative. Patient states his pain is well-controlled today. He denies any other needs or complaints. He denies any chest pain. He denies fever, chills, rigors, abdominal pain, nausea, vomiting, abdominal cramping. He does report loose stool. He denies headache, dizziness, vision changes. - Constitutional Vitals: Temp Pulse Resp BP Pulse Ox 98.7 F 64 16 143/74 97 08/23/17 06:39 08/23/17 06:39 08/23/17 07:58 08/23/17 06:39 08/23/17 07:58 General appearance: Present: cooperative, A&O X 1, pleasant, no acute distress, answers questions appropriately - Head Head exam: Present: atraumatic, normal inspection, normocephalic - Eye Eye exam: Present: normal appearance, conjuntiva pink, sclera anicteric - Neck Neck exam general surgery: Present: supple, trachea midline. Absent: lymphadenopathy - Respiratory Respiratory exam: Present: CTAB. Absent: accessory muscle use, rales, rhonchi, wheezes - Cardiovascular Cardiovascular exam: Present: RRR, +S1, +S2. Absent: diastolic murmur, gallop, rubs, systolic murmur - GI/Abdominal GI/Abdominal exam: Present: normal bowel sounds, soft. Absent: distended, hepatomegaly, tenderness - Extremities Exam Extremities exam: Present: normal capillary refill, normal inspection, warm, radial pulses palpable and symmetrical. Absent: calf tenderness, cyanotic, pedal edema, tenderness - Neurological Exam Neurological exam: Present: no focal deficits. Absent: oriented X3, facial droop, speech deficit - Skin Skin exam: Present: dry, intact, normal color, warm. Absent: rash Internal Medicine: Result - Labs CBC & Chem 7: 08/23/17 09:04 08/23/17 09:04 Labs: Short CBC 08/22/17 08/23/17 08/23/17 Range/Units 16:23 00:45 05:51 WBC (4.3-11.1) K/mcL Hgb 9.7 L 9.7 L 9.6 L (12.9-16.9) g/dL Hct 29.8 L 30.0 L 30.5 L (37.5-50.1) % Plt Count (140-400) K/mcL Neutrophils # (1.6-8.9) K/mcL 08/23/17 Range/Units 09:04 WBC 6.8 (4.3-11.1) K/mcL Hgb 10.4 L (12.9-16.9) g/dL Hct 31.9 L (37.5-50.1) % Plt Count 197 (140-400) K/mcL Neutrophils # 4.8 (1.6-8.9) K/mcL BMP 08/23/17 09:04 Sodium 138 Potassium 4.0 Chloride 107 Carbon Dioxide 23 BUN 22 Creatinine 1.97 H Glucose 175 H Calcium 8.7 Urine 08/22/17 Range/Units 17:00 Urine Color Yellow (Yellow) Urine Clarity Clear (Clear) Urine pH 6.0 (5.0-8.0) pH Units Ur Specific [place] 1.014 (1.010-1.025) Urine Protein Negative (Neg-Trace) mg/dL Urine Glucose (UA) Normal (Normal) mg/dL - ABG Interpretation ABG results: PT/INR, D-dimer PT 13.1 Seconds (9.4-12.1) H 08/23/17 05:51 Consult Discharge Plan - Plan Referrals: NONE,PCP [Primary Care Provider] -
[2017-08-23] MEDS ORDERED: 0.9 % Sodium Chloride 1,000 ML IVC SCH (11:15)
[2017-08-23] MEDS: Heparin 25,000 UNIT/500 ML D5W 25,000 UNIT/500 ML BAG IVC SCH (12:31)
[2017-08-23] MEDS ORDERED: *HR* Warfarin 5 MG TABLET PO ONE (18:00)
[2017-08-23] MEDS: Gabapentin 300 MG CAPSULE PO SCH (20:37)
[2017-08-23] MEDS: Mirtazapine 15 MG TABLET PO SCH (20:37)
[2017-08-24 06:24] LABS: Basophils # 0.1 K/mcL (0.0-0.2); Basophils % 0.7 %; Eosinophils # 0.4 K/mcL (0.0-0.6); Eosinophils % 5.5 %; Hematocrit 31.4 % (37.5-50.1); Immature Granulocytes % 0.6 % (0-4); Lymphocytes # 1.3 K/mcL (0.6-4.6); Lymphocytes % 19.2 %; Mean Corpuscular HGB Conc 31.8 g/dL (31.6-35.5); Mean Corpuscular Hemoglobin 29.6 pg (28.0-33.3); Mean Corpuscular Volume 92.9 fL (83.0-100.0); Mean Platelet Volume 10.9 fL (9.4-12.4); Monocytes # 0.6 K/mcL (0.0-1.3); Monocytes % 8.4 %; Neutrophils # 4.5 K/mcL (1.6-8.9); Platelet Count 231 K/mcL (140-400); Red Blood Count 3.38 M/mcL (4.19-5.50); Red Cell Distribution Width 13.7 % (11.5-14.5); Segmented Neutrophils % 65.6 %
[2017-08-24 06:28] LABS: INR 1.3; Prothrombin Time 14.5 Seconds (9.4-12.1)
[2017-08-24 06:44] LABS: Calcium 8.6 mg/dL (8.6-10.3)
[2017-08-24] MEDS: GuaiFENesin Liq 200 MG/10 ML UDC PO SCH (07:57)
[2017-08-24] MEDS: Nicotine 14 MG PATCH.TD24 TD SCH (07:58)
[2017-08-24] MEDS: Fenofibrate 54 MG TABLET PO SCH (07:59)
[2017-08-24] MEDS: Famotidine 20 MG TABLET PO SCH (07:59)
[2017-08-24] MEDS: Topiramate 25 MG TABLET PO SCH (07:59)
[2017-08-24] MEDS: *HR* LORazepam 0.5 MG TABLET PO SCH ×2 (07:59→14:06)
[2017-08-24] MEDS: Aspirin Enteric Coated 81 MG Tablet PO SCH (07:59)
[2017-08-24] MEDS: Cholecalciferol (D-3) 1,000 UNIT TABLET PO SCH (07:59)
[2017-08-24] MEDS: Ranolazine 500 MG TAB.ER.12H PO SCH (07:59)
[2017-08-24] MEDS: Sennosides 8.6 MG TABLET PO SCH (08:00)
[2017-08-24] MEDS: Folic Acid 1 MG TABLET PO SCH (08:00)
[2017-08-24] MEDS: Insulin LISPRO 300 UNITS/3 ML VIAL SQ SCH ×2 (08:00→12:33)
[2017-08-24] MEDS: Furosemide 40 MG TABLET PO SCH (08:00)
[2017-08-24] MEDS: Heparin 25,000 UNIT/500 ML D5W 25,000 UNIT/500 ML BAG IVC SCH (08:34)
[2017-08-24] MEDS ORDERED: 0.9 % Sodium Chloride 1,000 ML IVC SCH (08:45)
[2017-08-24 11:14] VITALS: BP 124/82
--- NOTE | 2017-08-24 12:26 | Discharge Summary ---
- NOTES TO OUTPATIENT PROVIDER Notes to Outpatient Provider: Pt will need follow up for anticoagulation and for BLE DVT. Renal function remained stable throughout visit. Sr Cr 2.11/ GFR 31. Creatinine clearance 47 on discharge, pt ok with BID Lovenox. Incidental finding of 3.5cm AAA, pt can follow up with vascular outpatient. Orders not resulted at time of discharge: Pending orders 08/24/17 14:15 PTT [Activated Partial Thrombo Time] [COAG] Routine Date of Encounter: 08/24/17 Time of Encounter: 10:20 - Discharge Diagnosis (1) TOMEKA (acute kidney injury) Priority: Secondary Status: Acute Comments: Suspect CKD III. Sr Cr elevated and GFR decreased on admission, has remained stable throughout visit. Sr Cr 2.11, GFR 31. Monitor labs and vitals. Avoid nephrotoxins. Pt is not on ACEI, ARB, loop diuretic. (2) DVT, bilateral lower limbs Priority: Primary Status: Acute Comments: Pt denies leg pain, denies pain to feet or wounds today. Heparin gtt has been stopped, will bridge to Lovenox, continue Warfarin. Pt will need to have INR drawn at [facility] and pharmacy to dose Warfarin. INR 1.3 today. Warfarin dosed by pharmacy for 7.5 mg today. Lovenox 100mg SQ (1mg/kg) BID, creatinine clearance calculated at 47. Qualifiers: Affected thrombotic vein of extremity: femoral Chronicity: acute Qualified Code(s): I82.413 - Acute embolism and thrombosis of femoral vein, bilateral (3) AAA (abdominal aortic aneurysm) without rupture Priority: Secondary Status: Acute Comments: Incidental finding on abdominal CT. 3.5 cm. Patient can follow up with vascular outpatient. Hospital course: Mr. Dumont is a 72 year old male with past medical history of chronic kidney disease, chronic venous insufficiency, chronic diabetic ulcer of left foot, hypertension. Patient presented to the emergency room after outpatient lower extremity venous Doppler showed extensive bilateral DVTs. Dopplers performed due to lower extremity pain for several days while at the senior living. Patient is immobile due to chronic leg injuries. Patient states that he is not comfortable discussing his injury Patient resides in a senior living. He does have wounds to his feet that are treated at the senior living, they were present prior to arrival. He has been treated with a heparin drip, also on warfarin. INR subtherapeutic at 1.3. Pharmacy is dosing warfarin. Patient is going to be sent back to the senior living today with bridge to Lovenox. Lovenox will be 100 mg twice daily. Creatinine clearance is calculated at 47. Mr. Dumont has elevated yet stable renal function since arrival. Most likely he has CKD stage III, with no records were available to compare. Serum creatinine is 2.11 GFR is 31. Patient is stable, his pain is well controlled. He is alert, oriented. His labs and vital signs are stable and within normal limits. Patient will be discharged in stable condition back to his senior living. Discharge discussed with: patient, nurse - Time Spent with Patient Total time spent providing and/or coordinating discharge services: Less than 30 minutes - Discharge Medications Prescriptions: Enoxaparin [Lovenox *PHARMACY WT BASED*] 100 mg SQ Q12HR #6 mg HYDROcodone/Acet 5/325 mg [Cisco 5-325 mg] 1 tab PO Q6H PRN 1 Days #4 tablet PRN Reason: Pain Warfarin [Coumadin] 7.5 mg PO 1800 #2 tablet Home Medications: Albuterol Sulfate [Ventolin Hfa] 1 puff IH BID 08/21/17 [History] Aspirin [Lo-Dose Aspirin EC] 81 mg PO DAILY 08/21/17 [History] Atorvastatin Calcium [Lipitor] 20 mg PO DAILY 08/21/17 [History] Carvedilol 3.125 mg PO BID 08/21/17 [History] Cholecalciferol (D-3) [Vitamin D] 5,000 unit PO DAILY 08/21/17 [History] Cyanocobalamin (Vitamin B-12) [Vitamin B12] 500 mcg PO MOWEFR 08/21/17 [History] Docusate Sodium [Dok] 100 mg PO Q12H 08/21/17 [History] Fenofibrate [Tricor] 54 mg PO DAILY 08/21/17 [History] Folic Acid 1 mg PO DAILY 08/21/17 [History] Furosemide [Lasix] 40 mg PO DAILY 08/21/17 [History] Gabapentin [Neurontin] 300 mg PO HS 08/21/17 [History] GlipiZIDE XL (24 HR) [Glucotrol XL] 2.5 mg PO DAILY 08/21/17 [History] Guaifenesin [Mucus Relief] 400 mg PO BID 08/21/17 [History] Insulin Human Regular [HumuLIN R] 2 - 10 unit SQ DAILY 08/21/17 [History] Ipratropium/Albuterol Neb [Duoneb] 3 ml IH Q4HR PRN 08/21/17 [History] Ipratropium/Albuterol Neb [Duoneb] 3 ml IH Q6HR PRN 08/21/17 [History] LORazepam [Ativan] 0.5 mg PO TID 08/21/17 [History] Linagliptin [Tradjenta] 5 mg PO DAILY 08/21/17 [History] Mirtazapine [Remeron] 30 mg PO HS 08/21/17 [History] Morphine Sulfate [Morphine Oral Solution] 5 mg PO Q4H PRN 08/21/17 [History] Omeprazole [PriLOSEC] 20 mg PO DAILY 08/21/17 [History] Promethazine [Phenergan] 25 mg PO Q6HR PRN 08/21/17 [History] Ranitidine HCl [Acid Product Manager] 75 mg PO BID 08/21/17 [History] Ranolazine [Ranexa] 500 mg PO BID 08/21/17 [History] Sennosides [Senna] 8.6 mg PO DAILY 08/21/17 [History] Sertraline [Zoloft] 100 mg PO DAILY 08/21/17 [History] Spironolactone [Aldactone] 12.5 mg PO MOTH 08/21/17 [History] Topiramate [Topamax] 25 mg PO QAM 08/21/17 [History] Topiramate [Topamax] 50 mg PO HS 08/21/17 [History] Enoxaparin [Lovenox *PHARMACY WT BASED*] 100 mg SQ Q12HR #6 mg 08/24/17 [Rx] HYDROcodone/Acet 5/325 mg [Cisco 5-325 mg] 1 tab PO Q6H PRN 1 Days #4 tablet [Rx] Nicotine Patch [Nicoderm] 14 mg TD DAILY patch.td24 08/24/17 [Rx] Warfarin [Coumadin] 7.5 mg PO 1800 #2 tablet 08/24/17 [Rx] Warfarin perPT [Coumadin perPT] 1 each PO DAILY@1800 PRN #0 each 08/24/17 [Rx] Allergies/Adverse Reactions: 3 Allergy/AdvReac Type Severity Reaction Status Date / Time No Known Allergies Allergy Verified 08/21/17 15:24 Date of admission: 08/21/17 21:41 Primary care physician: PCP NONE Discharging clinician: Rosa Jc Anticipated date of discharge: 08/24/17 - Constitutional Vitals: Temp Pulse Resp BP Pulse Ox 97.4 F L 79 18 124/82 97 08/24/17 11:13 08/24/17 11:13 08/24/17 11:13 08/24/17 11:13 08/24/17 11:13 General appearance: Present: cooperative, A&O X 1, pleasant, no acute distress, answers questions appropriately - Patient Status Disposition: Transfer SNF Condition: Fair Functional capacity at discharge: wheelchair bound Overall status at discharge: patient is progressing back to baseline - Discharge Instructions Follow Up With: NONE,PCP [Primary Care Provider] - Additional Instructions: Pharmacy to dose Warfarin until INR therapeutic. Pt being bridged with Lovenox. He will need INR daily with pharmacy dosing of Warfarin daily. He will also need frequent monitoring of Sr Cr and GFR. - Diet and Activity Activity: as per physical therapy Diet: advance to your usual diet
[2017-08-24] MEDS: *HR* Enoxaparin 100 MG/ML SYRINGE SQ SCH ×2 (14:06→14:59)
--- NOTE | 2017-08-24 15:05 | Physician Discharge Referral ---
ExtendedCare Referral Info Transfer To: [facility] Provider in Charge after Transfer: PCP Institutional Level of Care: Skilled - Diagnosis (1) TOMEKA (acute kidney injury) Priority: Secondary Status: Acute (2) DVT, bilateral lower limbs Priority: Primary Status: Acute (3) AAA (abdominal aortic aneurysm) without rupture Priority: Secondary Status: Acute Prognosis: Fair Aware of Diagnosis: Patient - Transfer Medications Prescriptions: Enoxaparin [Lovenox *PHARMACY WT BASED*] 100 mg SQ Q12HR #6 mg HYDROcodone/Acet 5/325 mg [Powderly 5-325 mg] 1 tab PO Q6H PRN 1 Days #4 tablet PRN Reason: Pain Warfarin [Coumadin] 7.5 mg PO 1800 #2 tablet Home Medications: Albuterol Sulfate [Ventolin Hfa] 1 puff IH BID 08/21/17 [History] Aspirin [Lo-Dose Aspirin EC] 81 mg PO DAILY 08/21/17 [History] Atorvastatin Calcium [Lipitor] 20 mg PO DAILY 08/21/17 [History] Carvedilol 3.125 mg PO BID 08/21/17 [History] Cholecalciferol (D-3) [Vitamin D] 5,000 unit PO DAILY 08/21/17 [History] Cyanocobalamin (Vitamin B-12) [Vitamin B12] 500 mcg PO MOWEFR 08/21/17 [History] Docusate Sodium [Dok] 100 mg PO Q12H 08/21/17 [History] Fenofibrate [Tricor] 54 mg PO DAILY 08/21/17 [History] Folic Acid 1 mg PO DAILY 08/21/17 [History] Furosemide [Lasix] 40 mg PO DAILY 08/21/17 [History] Gabapentin [Neurontin] 300 mg PO HS 08/21/17 [History] GlipiZIDE XL (24 HR) [Glucotrol XL] 2.5 mg PO DAILY 08/21/17 [History] Guaifenesin [Mucus Relief] 400 mg PO BID 08/21/17 [History] Insulin Human Regular [HumuLIN R] 2 - 10 unit SQ DAILY 08/21/17 [History] Ipratropium/Albuterol Neb [Duoneb] 3 ml IH Q4HR PRN 08/21/17 [History] Ipratropium/Albuterol Neb [Duoneb] 3 ml IH Q6HR PRN 08/21/17 [History] LORazepam [Ativan] 0.5 mg PO TID 08/21/17 [History] Linagliptin [Tradjenta] 5 mg PO DAILY 08/21/17 [History] Mirtazapine [Remeron] 30 mg PO HS 08/21/17 [History] Morphine Sulfate [Morphine Oral Solution] 5 mg PO Q4H PRN 08/21/17 [History] Omeprazole [PriLOSEC] 20 mg PO DAILY 08/21/17 [History] Promethazine [Phenergan] 25 mg PO Q6HR PRN 08/21/17 [History] Ranitidine HCl [Acid Paperhanger Apprentice] 75 mg PO BID 08/21/17 [History] Ranolazine [Ranexa] 500 mg PO BID 08/21/17 [History] Sennosides [Senna] 8.6 mg PO DAILY 08/21/17 [History] Sertraline [Zoloft] 100 mg PO DAILY 08/21/17 [History] Spironolactone [Aldactone] 12.5 mg PO MOTH 08/21/17 [History] Topiramate [Topamax] 25 mg PO QAM 08/21/17 [History] Topiramate [Topamax] 50 mg PO HS 08/21/17 [History] Enoxaparin [Lovenox *PHARMACY WT BASED*] 100 mg SQ Q12HR #6 mg 08/24/17 [Rx] HYDROcodone/Acet 5/325 mg [Powderly 5-325 mg] 1 tab PO Q6H PRN 1 Days #4 tablet [Rx] Nicotine Patch [Nicoderm] 14 mg TD DAILY patch.td24 08/24/17 [Rx] Warfarin [Coumadin] 7.5 mg PO 1800 #2 tablet 08/24/17 [Rx] Warfarin perPT [Coumadin perPT] 1 each PO DAILY@1800 PRN #0 each 08/24/17 [Rx] Allergies/Adverse Reactions: 3 Allergy/AdvReac Type Severity Reaction Status Date / Time No Known Allergies Allergy Verified 08/21/17 15:24 - Respiratory Orders Oxygen / L per min (2 liters via nasal canula, titrate as needed to maintain sats > 92%) Smoking Cessation: Smoking cessation has been advised. For more information, call the [place] Tobacco Quit Line at 2-953-DRCD-NOW. - Lab Orders Lab Orders: 2 Step Mantoux Test per State regulation, CBC, U/A, Gil[place] 17, CXR yearly - Ancillary Orders May use pressure relief devices daily prn, May consult with Dentist, Manager Engagement, Rubber Molder PRN - Advance Directives Code Status: Full Code - Mobility Orders Chair - Rehabiliation Orders Rehab Potential: Fair Rehab Orders: ROM Exercises, Evaluation for Physical Therapy, Evaluation for Occupational Therapy - Treatments Skin tear care topically daily PRN per policy, May check for fecal impaction rectally daily PRN, Fleet enema rectally every other day PRN cleansing purposes - Diet Orders Regular CERTIFICATION: I certify that the transfer of the above named patient to an Extended Care Facility is necessary for the continuing treatment of the diagnosis listed. The above information is true and accurate reflection of patient's current condition. Confidential - Redisclosure prohibited without a patient's written consent.
[2017-08-24] MEDS ORDERED: *HR* Warfarin 7.5 MG TABLET PO ONE (18:00)
[2017-08-24] MEDS ORDERED: Spironolactone 25 MG TABLET PO SCH (21:47)
--- NOTE | 2017-08-28 08:52 | Electrocardiograph Report ---
[place] [id number] Test Date: 2017-08-21 Pat Name: Gab Dumont Department: 102 Room: 3B Gender: M Yield Analyst: : 1945 Requested By: Wang Caraballo Order Number: [id number] Reading MD: Jigar Saeed Measurements Intervals [place] Rate: 74 P: 0 [place]: 230 QRS: 8 QRSD: 103 T: 50 QT: 411 QTc: 438 Interpretive Statements SINUS RHYTHM WITH FIRST DEGREE AV BLOCK SEPTAL MYOCARDIAL INFARCTION, PROBABLY OLD Electronically Signed On 08-28-2017 8:50:17 EDT by Jigar Saeed
== END 2017-08-24 16:21 | DRG 299 ==
LOC: EMEROO 15:18 → 3BNU 15:18
PROVIDERS: ADMIT Internal Medicine; ATTEND Registered Nurse